=== PATIENT | male | born 1985 | race Caucasian/White ===

== ENCOUNTER → 2024-02-07 18:56 | Outpatient (CLI) | payer OTHER, SELFPAY ==
--- NOTE | 2024-02-07 19:00 | DI.MRI.S_ITS ---
PROCEDURE: MR CERVICAL SPINE WO CON INDICATIONS: Radiculopathy, cervical region TECHNIQUE: Noncontrast sagittal T1 spin echo and T2 fast spin echo, sagittal STIR, foraminal oblique sagittal T2 fast spin echo, and axial gradient echo or T2 fast spin echo through the cervical spine. COMPARISON: None. FINDINGS: Image quality: Excellent. Alignment and Curvature: There is trace retrolisthesis of C5 on C6. Bone Marrow: Marrow demonstrates normal overall signal. Spinal Cord: Visualized spinal cord has normal size and signal. No cerebellar tonsillar herniation. Paraspinous Soft Tissues: No paravertebral masses. Prevertebral soft tissues are normal in thickness. Discs: [id number] disc desiccation C5-6. C2-C3: No disc bulge, spinal stenosis or foraminal narrowing. C3-C4: Minimal disc bulge without spinal stenosis or foraminal narrowing. C4-C5: Minimal disc bulge without spinal stenosis or foraminal narrowing. C5-C6: Mild disc bulge with posterior right paracentral protrusion with compromise of the right lateral recess as well as proximal right foramina. C6-C7: Minimal disc bulge without spinal stenosis. Minimal right foraminal narrowing. C7-T1: No disc bulge, spinal stenosis or foraminal narrowing. IMPRESSION: Early degenerative changes most prominent at C5-6 demonstrating disc bulge with prominent right posterior paracentral protrusion with compromise of the right lateral recess and proximal right foramina. Dictated by: Kassie Fuentes M.D. on 02/08/2024 at 13:34 Approved by: Kassie Fuentes M.D. on 02/08/2024 at 13:36
== END ==
LOC: MRI 18:59
PROVIDERS: Referring Provider Preventive Medicine Aerospace Medicine; Visit Provider Preventive Medicine Aerospace Medicine
DX: M50.122 Cervical disc disorder at C5-C6 level with radiculopathy (principal)
CPT/HCPCS: 72141